=== PATIENT | male | born 1970 | race Caucasian/White ===

== ENCOUNTER 2025-01-11 13:40 | Emergency (ER) | payer OTHER ==
[~2025-01-11] VITALS: Ht 180.3 cm; Wt 85.4 kg
[2025-01-11] MEDS ORDERED: FLUOXETINE HCL20 MG PO (14:17)
[2025-01-11] MEDS ORDERED: HYDROXYZINE PAM25 MG PO (14:18)
[2025-01-11] MEDS ORDERED: OLANZAPINE5 MG PO (14:18)
[2025-01-11 14:28] LABS: BASOPHILS 0.5 % (0-2); EOSINOPHILS 0.2 % (0-6); HEMATOCRIT 39.5 % (35.0-50.0); HEMOGLOBIN 13.7 g/dL (12.0-18.0); LYMPHOCYTES 35.8 % (24-44); MCH 30.3 (27-36); MCHC 34.7 g/dl (30-36); MCV 87.3 fl (81-99); NEUTROPHILS 55.5 % (39-80); PLATELET COUNT 247 K/uL (140-440); RBC 4.53 M/ul (4.3-5.7); RDW 14.7 (10.5-15.0)
[2025-01-11] MEDS ORDERED: SODIUM CHLORIDE 0.9% 1,000 ML IV ONE (14:30)
[2025-01-11] MEDS ORDERED: ondansetron HCL 4 MG/2 ML VIAL IV ONE (14:30)
[2025-01-11 14:37] LABS: ALBUMIN 4.3 g/dL (3.4-5.0); ALBUMIN/GLOBULIN RATIO 1.16 (1.1-2.4); BILIRUBIN, TOTAL 0.8 mg/dL (0.2-1.0); BUN/CREATININE RATIO 15.09 (6.0-28.6); CALCIUM 9.4 mg/dL (8.5-10.1); CREATININE, SERUM 1.06 mg/dL (0.70-1.30)
[2025-01-11] MEDS ORDERED: MIRALAX17 GM PO (15:30)
[2025-01-11] MEDS ORDERED: KRISTALOSE20 GM PO (15:30)
[2025-01-11 15:43] VITALS: BP 113/73
== END 2025-01-11 15:40 | disposition other institution, planned readmission (95) ==
LOC: ED 13:40
PROVIDERS: Emergency Medicine
DX: K59.00 Constipation, unspecified (principal); Z79.899 Other long term (current) drug therapy
CPT/HCPCS: 36415; 74177; 80053; 80307; 85025; 96374; 99284-25; J2405; J7030; Q9967

== ENCOUNTER 2025-01-12 16:39 | Inpatient (IN) | payer OTHER ==
[~2025-01-12] VITALS: Ht 180.3 cm; Wt 105.7 kg
[~2025-01-12 16:39] MED LIST: FLUOXETINE HCL20 MG PO; HYDROXYZINE HCL25 MG PO; KRISTALOSE20 GM PO; MIRALAX17 GM PO; OLANZAPINE5 MG PO; SEVOFLURANE 250 ML BTL INH ONE
--- OUTSIDE RECORDS SUMMARY | 2025-01-12 16:46 | XMS ---
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 Deanna has no Care Guidelines for this patient. [facility] MO[facility]: Visits indicate total known visits. ED/C VISIT TRACKING (12 MO.) [facility] COMPLAINT: - ABDOMINAL PAIN 01/11/2025 13:42 CECY Palacios OR TYPE: Emergency COMPLAINT: - CONSTIPATION INPATIENT VISIT TRACKING (12 MO.) No inpatient visits to display in this time frame [email or web address]
[2025-01-12] MEDS ORDERED: KETOROLAC TROMETHAMINE 30 MG/ML VIAL IV ONE (21:00)
[2025-01-12] MEDS ORDERED: Methylnaltrexone Bromide 12 MG/0.6 ML VIAL SUB-Q ONE (21:00)
[2025-01-12] MEDS ORDERED: LIDOCAINE 2% VISCOUS 6 ML SYR TOP ONE ×2 (21:00→23:30)
[2025-01-12] MEDS ORDERED: MORPHINE SULFATE 4 MG/ML VIAL IV ONE (23:00)
[2025-01-13] VITALS (12 sets, daily range): BP systolic 102–135; BP diastolic 62–111
[2025-01-13] MEDS ORDERED: MINERAL OIL 133 ML BTL PR ONE ×2 (00:30→10:15)
[2025-01-13] MEDS ORDERED: LACTATED RINGER'S 1,000 ML IV SCH ×3 (01:15→11:30)
[2025-01-13] MEDS ORDERED: HYDROmorphone HCL 1 MG/ML SYR IV PRN ×2 (01:15→03:30)
[2025-01-13] MEDS ORDERED: KETOROLAC TROMETHAMINE 30 MG/ML VIAL IV PRN ×2 (03:30→10:30)
[2025-01-13] MEDS ORDERED: ondansetron HCL 4 MG/2 ML VIAL IV PRN ×2 (03:30→10:30)
[2025-01-13] MEDS ORDERED: metroNIDAZOLE/SODIUM CHLORIDE 500 MG/100 ML PIGGYBACK IV SCH ×2 (03:30→15:00)
[2025-01-13] MEDS ORDERED: PIPERACILLIN/TAZOBACTAM 3.375 GM in SODIUM CHLORIDE 0.9% 100 ML IV ONE (03:30)
--- NOTE | 2025-01-13 04:00 | NUR ---
PATIENT GIVEN PAIN MEDICATION BY AURE LUCERO. REPORT RECEIVED FROM AURE LUCERO. THIS RN IN ROOM TO ASSESS PATIENT AND COMPLETED ADMISSION FORMS. IV ABX STARTED AT THIS TIME.
--- NOTE | 2025-01-13 05:20 | NUR ---
PATIENT REPORTING 10/10 PAIN "IN MY ANUS". PATIENT MEDICATED AT THIS TIME WITH PRN PAIN MEDICATION. IV FLUSHED WITH 10ML OF NS, DRESSING INTACT. WARM BLANKET PROVIDED. PATIENT WITHOUT FURHTER NEEDS AT THIS TIME. CALL LIGHT AND PERSONAL BELONGINGS ARE WITHIN REACH.
[2025-01-13 05:33] LABS: BASOPHILS 0.6 % (0-2); EOSINOPHILS 0.2 % (0-6); HEMATOCRIT 36.6 % (35.0-50.0); HEMOGLOBIN 12.7 g/dL (12.0-18.0); MCH 30.4 (27-36); MCHC 34.8 g/dl (30-36); MCV 87.3 fl (81-99); MONOCYTES 8.5 % (0-12); NEUTROPHILS 58.7 % (39-80); PLATELET COUNT 238 K/uL (140-440); RBC 4.19 M/ul (4.3-5.7); RDW 14.9 (10.5-15.0)
[2025-01-13 05:51] LABS: ALBUMIN 3.7 g/dL (3.4-5.0); ALBUMIN/GLOBULIN RATIO 1.09 (1.1-2.4); BILIRUBIN, TOTAL 0.8 mg/dL (0.2-1.0); CALCIUM 8.7 mg/dL (8.5-10.1); PROTEIN, TOTAL 7.1 g/dL (6.4-8.2)
--- NOTE | 2025-01-13 07:04 | NUR ---
Pt report received from AURE Matthews and AURE Walker. Pt is awake in bed, supine, television on, Corrections Officers in room. Pt reports he is not in any pain at the moment and denies any needs at this time. When asked, he states he has been voiding (in report they advised he had not voided since he arrived to the floor). C/O requested a cup of coffee which was provided. White board updated. Side rails up x4, call light in reach.
--- NOTE | 2025-01-13 08:45 | NUR ---
AURE Bryant from OR here to transfer pt to day surgery. Hung LR on straight tubing with extension, administered IV famotidine per emar after assessment of IV site. Annette assisted pt and C/Os to remove pt's clothing and don a clean gown, and explained procedure to pt who then signed consent. Pt transferred via hospital bed to OR by AURE Bryant, C/Os accompanied them. Assessment completed prior to AURE Bryant's arrival.
[2025-01-13] MEDS ORDERED: FAMOTIDINE 20 MG/ 2 ML VIAL IV SCH (09:00)
[2025-01-13] MEDS ORDERED: propofoL 200 MG/20 ML VIAL ONE (09:09)
[2025-01-13] MEDS ORDERED: fentaNYL citrate 100 MCG/2 ML VIAL ONE (09:09)
[2025-01-13] MEDS ORDERED: LIDOCAINE HCL 2% 5 ML SDV ONE (09:09)
[2025-01-13] MEDS ORDERED: ROCURONIUM BROMIDE 50 MG/5 ML SYR ONE (09:09)
[2025-01-13] MEDS ORDERED: DEXAMETHASONE SOD PHOS 4 MG/ML VIAL ONE (09:10)
[2025-01-13] MEDS ORDERED: ondansetron HCL 4 MG/2 ML VIAL ONE (09:10)
[2025-01-13] MEDS ORDERED: ACETAMINOPHEN 1,000 MG/100 ML VIAL ONE (09:15)
[2025-01-13] MEDS ORDERED: POLYETHYLENE GLYCOL 3350 BOTTLE XX ONE (09:15)
--- NOTE | 2025-01-13 10:03 | NUR ---
[place] [facility] [place] FOR INTESTINAL POSITIVE CT, SURGICAL INTERVENTION NEEDED, IV FLUIDS, IV ANALGESICS WILL NOTIFY PHYSICIAN MEETS INPT CRITERIA CHP-ODOC OBS 01/13/25 @ 0328 ORDER MATCHES REG NO AUTH REQUIRED FOR ODOC, CLINICALS SENT DC TO [facility] WHEN MEDICALLY STABLE 01/14/2025
[2025-01-13] MEDS ORDERED: fentaNYL citrate 50 MCG/ML SDV IV PRN (10:30)
[2025-01-13] MEDS ORDERED: IBLOOD GLUCOSE TEST STRIP 1 EA TEST VI PRN (10:30)
[2025-01-13] MEDS ORDERED: NALOXONE HCL 0.4 MG SYR IV PRN (10:30)
[2025-01-13] MEDS ORDERED: MINERAL OIL 133 ML BTL ONE (10:38)
[2025-01-13] MEDS ORDERED: SUGAMMADEX SODIUM 200 MG/2 ML ML ONE (10:42)
--- NOTE | 2025-01-13 10:55 | NUR ---
01/13/25 1055 Svetlana Flannery 1050-PATIENT ARRIVED TO PACU ON 6L MASK RR EVEN.PATIENT REACTIVE TO VERBAL STIMULI VERY DROWSY OPENS EYES. ORIENTED TO PACU. ABDOMEN SOFT IVF INFUSING. HOB ELEVATED SR HR 60'S. 1053-PATIENT AROUSING DROWSY PLACED ON RA 99% RR EVEN.
--- NOTE | 2025-01-13 11:25 | NUR ---
PT TO ROOM FROM PACU, REPORT RECEIVED FROM EMMANUEL Alfred RN. PT ALERT, DENIES PAIN AT THIS TIME. VS TAKEN. 2 GUARDS IN ROOM. NO REQUESTS AT THIS TIME.
--- NOTE | 2025-01-13 12:24 | NUR ---
MED REC COMPLETE
--- NOTE | 2025-01-13 13:24 | NUR ---
PATIENT LIVES AT [facility]. PATIENT DOES NOT REQUIRE OXYGEN OR A CPAP. NO FUTHER CM NEEDS AT THIS TIME.
[2025-01-13] MEDS ORDERED: PIPERACILLIN/TAZOBACTAM 3.375 GM in SODIUM CHLORIDE 0.9% 100 ML IV SCH (14:00)
--- NOTE | 2025-01-13 15:50 | NUR ---
Dr. Roberts in with pt to answer questions. Pt up with COs to ambulate hallway at Dr. Roberts's request. Pt reporting pain in area of anus. Dr. Roberts explained why he is painful there after surgery. Pt up to void large quantity of dark colored urine in toilet (unmeasured) prior to ambulating. Pt back from ambulation and is now sitting on the toilet attempting to pass stool. COs in room. Bed tidied.
--- NOTE | 2025-01-13 16:18 | NUR ---
Pt has been ambulating hallways for about 30 minutes. Has had to sit on the toilet 2 or 3 times throughout and states that he is passing gas and "oily yellow stuff". Encouraged pt to continue ambulating as often as possible. Pt states he isn't having any pain until he sits on the toilet and pushes, or until he sits down, causing him to have to lay on his side.
[2025-01-13] MEDS ORDERED: POLYETHYLENE GLYCOL 3350 1 PACKET PO ONE (19:00)
--- NOTE | 2025-01-13 19:03 | NUR ---
PC to Dr. Roberts to update him on this pt's bowel progress. Advised Dr. Roberts that the pt has been ambulating often since he saw him earlier this afternoon, and has had multiple liquid/oily stools but no substance to them. Dr. Roberts gave a verbal order for 2 packets of miralax to mix in 480ml-720ml of water/apple juice and requested we ask dietary if they have Extra [place] Maria Stein Oil to add 2 tbsp to this miralax mixture, and to go ahead and give him ice cream if we have any on the floor.
--- NOTE | 2025-01-13 19:10 | NUR ---
REPORT RECEIVED FROM AURE CAMACHO. PATIENT RESTING IN BED WATCHING TV WITH GAURDS X2 AT BEDSIDE. PATIENT WITHOUT ANY NEEDS AT THIS TIME. CALL LIGHT AND PERSONAL BELONGINGS ARE WITHIN REACH.
--- NOTE | 2025-01-13 20:30 | NUR ---
PATIENT UP IN SHOWER AND REPORTING SEVERE PAIN IN HIS ABDOMEN. PATIENT REPORT HAVING BOWEL MOVEMENTS THAT "EXPLODED IN THE SHOWER" PATIENT REPORTS IT IS "JUST SOME OILY STUFF, NO ACTUAL POOP". DR NOWAK CALLED AT THIS TIME DUE TO PATIENT PAIN NOT TOLERABLE AND NOT GETTING ANY RELIEF. DR NOWAK STATES "THERE IS NOTHING MORE WE CAN DO RIGHT NOW." THIS RN ASKED MD "IF THE PAIN DOESN'T LET UP,HOW LONG DO YOU WANT ME TO WAIT UNTIL I CALL YOU BACK?" MD STATES "IN ONE TO TWO HOURS YOU CAN CALL BACK IF IT CONTINUES TO GET WORSE WITHOUT RELIEF, BUT AGAIN THERE REALLY ISN'T ANYTHING MORE WE CAN DO. THE NEXT STEP WOULD BE SURGERY AND WE ARE TRYING TO AVOID THAT." WITH NO FURTHER ORDERS AT THIS TIME. CALL ENDED.
--- NOTE | 2025-01-13 21:15 | NUR ---
IN ROOM FOR ABX ADMINISTRATION. PATIENT REPORTS STILL HAVING SEVERE PAIN, BUT IS "ABLE TO PUSH THROUGH IT BECAUSE IT COMES AND GOES." IV FLUSHED WITH 10ML OF NS, DRESSING INTACT. ABX INFUSING. PATIENT WITHOUT FURTHER NEEDS AT THIS TIME. CALL LIGHT AND PERSONAL BELONGINGS ARE WITHIN REACH.
--- NOTE | 2025-01-13 22:30 | NUR ---
IN ROOM FOR ABX ADMINISTRATION. PATIENT REPORTS STILL HAVING SEVERE PAIN, BUT TOLERATES IT. PATIENT HAD VOMITING EPISODE. PATIENT STATES HE NO LONGER FEELS NAUSEATED. PATIENT UP TO THE BATHROOM AGAIN WHILE THIS RN WAS IN THE ROOM. NO OTHER VOMITING EPISODES. PATIENT REPORTS "I FEEL IT THERE BUT IT'S TOO BIG AND TOO PAINFUL, I CAN'T PUSH IT OUT." PATIENT DENIES WANTING ANYTHING FURTHER AND WANTS TO "JUST RIDE IT OUT". PATIENT WITHOUT FURTHER NEEDS AT THIS TIME. NAOMI X2 AT BEDSIDE. CALL LIGHT AND PERSONAL BELONGINGS ARE WITHIN REACH.
--- NOTE | 2025-01-13 23:30 | NUR ---
PATIENT RESTING IN BED WATCHING TV WITH NAOMI X2 AT BEDSIDE. PATIENT REPORTS "IT'S CALMING DOWN, I DON'T HAVE TO GET UP AND GO OFTEN, BUT WHEN THE PAIN COMES, IT'S STILL PRETTY SEVERE". PATIENT DENIES ANY NAUSEA OR ANY MORE VOMITING EPISODES. PATIENT ALSO DENIES ANY STOOL, "JUST YELLOW OILY STUFF COMING OUT." PATIENT WITHOUT FURTHER NEEDS AT THIS TIME. CALL LIGHT AND PERSONAL BELONGINGS ARE WITHIN REACH.
[2025-01-14] VITALS (8 sets, daily range): BP systolic 97–117; BP diastolic 45–71
--- NOTE | 2025-01-14 01:14 | NUR ---
PATIENT RESTING IN BED WATCHING TV WITH GAURDS X2 AT BEDSIDE. PATIENT REPORTS "I'M MISERABLE" WHEN ASKED BY THIS RN HOW HE IS FEELING. PATIENT DENIES ANY NEEDS AT THIS TIME. CALL LIGHT AND PERSONAL BELONGINGS ARE WITHIN REACH.
--- NOTE | 2025-01-14 02:39 | NUR ---
PATIENT RESTING IN BED WATCHING TV WITH Heap X2 AT BEDSIDE. PATIENT FOCUS ASSESSMENT COMPLETED. BOWEL TONES ARE ACTIVE IN ALL 4 QUADRANTS, ABDOMEN IS TENDER WITH PALPATION. PATIENT DENIES ANY BOWEL MOVEMENTS. VITAL SIGNS ARE STABLE. FRESH COFFEE PROVIDED. PATIENT WITHOUT FURTHER NEEDS AT THIS TIME. CALL LIGHT AND PERSONAL BELONGINGS ARE WITHIN REACH.
--- NOTE | 2025-01-14 04:03 | NUR ---
PATIENT CALLED FOR NEW GOWN. THIS RN IN ROOM TO PROVIDE FRESH GOWN. PATIENT STATES HE IS "EXTREMELY MISERABLE", BUT WAS ABLE TO PASS A SMALL AMOUNT OF STOOL. ICE PACKS FROM [facility] PROVIDED TO PATIENT FOR COMFORT. PATIENT STATES HE "MIGHT TRY THEM NEXT TIME I HAVE TO GET UP TO THE BATHROOM." WARM BLANKET PROVIDED AND SCD'S TUNRED ON. PATIENT WITHOUT FURTHER NEEDS AT THIS TIME. CALL LIGHT AND PERSONAL BELONGINGS ARE WITHIN REACH.
--- NOTE | 2025-01-14 05:55 | NUR ---
IN PATIENT ROOM FOR VITAL SIGNS AND ABX ADMINISTRATION. PATIENT RESTING IN BED ON HIS LEFT SIDE. PATIENT WITHOUT FURTHER NEEDS AT THIS TIME. CALL LIGHT AND PERSONAL BELONGINGS ARE WITHIN REACH. PATIENT DENIES ANY MORE BOWEL MOVEMENTS.
--- NOTE | 2025-01-14 07:18 | NUR ---
Pt report received from RNs Cassie and Denise.
--- NOTE | 2025-01-14 08:29 | OR ---
[facility] 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 PROCEDURES: 1. Examination under anesthesia. 2. The impaction of fecaloma. 3. Colonoscopy with instillation of bowel prep. ANESTHESIA: General endotracheal anesthesia. DESCRIPTION OF PROCEDURE: After obtaining informed consent the patient was taken to the operating room and he was placed in a supine lithotomy position. The scrotum was retracted cephalad and sutured to the thigh. After achieving adequate paralysis, I went ahead and inspected the anus which he had a couple of internal hemorrhoids and I dilated the anus as much as I could. Upon entering the rectum it was very apparent that he had extremely hard stool that was impacted circumferentially also on the rectum. It was actually extremely difficult to break it down due to how hard it was. After taking sometime to chipping, chipping and chipping on the fecaloma I was able to break it down and extracted it. I tried to push some of the stool down from left lower quadrant from the sigmoid colon and down to the rectum and continued to extract as much as I could and again all throughout was very hard and difficult to break down. Once I cleared the rectum and the rectosigmoid area then I went ahead and inserted colonoscope with adequate lubrication and I navigated a scope around the stool very, very gently to achieve as far as I could that it was safe to do. I reached all the way to the hepatic flexure and at that point I saw a more superficial ulceration and I decided not to go any further. At this point, I went ahead and started irrigating the colon through the scope with polyethylene glycol and mineral oil. We infused about a liter of PEG, 300 mL of mineral oil. I pulled the scope. I continued to visualize circumferentially as well as I could and then reached the rectum again. Because of this irrigation, I was able to bring some of the stool down into the rectum which I was able to extract again manually. I reinserted the scope again to visualize the rectum. I did not see any ulcerations or any tears in the rectum or perianal area and I did not see any colitis. The patient tolerated very well the procedure and was then sent to the recovery room in good and stable condition. Electronically Signed By: GRAY ROBERTS MD 01/14/25 0829 PATIENT NAME: RHONDA IBANEZ OPERATIVE REPORT DATE OF : 74 REPORT #: [id number] PHYSICIAN: GRAY ROBERTS MD PCP: [facility] CORRECTIONAL REPORT IS CONFIDENTIAL AND NOT TO BE RELEASED WITHOUT AUTHORIZATION [facility] [address] [place] [id number] Signed MD MADISON Gatica/TONY /[id number] Copies: ~ Electronically Signed By: GRAY ROBERTS MD 01/14/25 0829 PATIENT NAME: RHONDA IBANEZ OPERATIVE REPORT DATE OF : 74 REPORT #: [id number] PHYSICIAN: GRAY ROBERTS MD PCP: [facility] REPORT IS CONFIDENTIAL AND NOT TO BE RELEASED WITHOUT AUTHORIZATION
--- NOTE | 2025-01-14 08:33 | NUR ---
DOCTOR IN ROOM WITH PATIENT. NO CARES WERE REQUESTED.
--- NOTE | 2025-01-14 08:55 | NUR ---
UR CLINICAL REVIEW: [facility] [place] MEETS INPT FOR INTESTINAL POSITIVE CT, SURGICAL INTERVENTION NEEDED, IV FLUIDS, IV ANALGESICS POTENTIAL NEED FOR FURTHER SURGICAL INTERVENTION CHP-ODOC FROM OBS TO INPT 01/14/25 @ 0853 ORDER MATCHES REG NO AUTH REQUIRED FOR ODOC, CLINICALS SENT DC TO [facility] WHEN MEDICALLY STABLE 01/17/2025
--- NOTE | 2025-01-14 10:11 | NUR ---
In with pt for medication administration per IV, per emar. Pt is A&O x4, COs in room, pt is restrained per [facility] protocol. Pt denies pain at this time. Requests ice cream, stating this "is the only thing that helps me go". Pt was provided with a chocolate and a vanilla cup of ice cream. Side rails up, call light in reach, questions answered.
--- NOTE | 2025-01-14 10:35 | NUR ---
optics technical officer here to transfer pt via wheelchair for CT scan, COs escorting, pt in restraints. IV S/L for imaging.
--- NOTE | 2025-01-14 11:01 | NUR ---
Pt back from imaging. Pt states when he got back, he had a medium sized "boulder-like" hard BM. He states it was extremely painful to pass and felt like everything was "ripping open". Pt states, currently, he is not painful. IVF/ABX reconnected after IV assessment (patent, no blood return, but no leaking, swelling, redness). COs in with pt, restraints on pt.
--- NOTE | 2025-01-14 15:00 | NUR ---
In pt's room with Dr. Roberts. Verbal orders received to administer 2pkts miralax mixed in the pt's liquid of choice (excluding milk) (480-760ml), and to add 2 tbsp extra virgin olive oil to that mix and have the pt sip it over a period of time. Verbal order also received to administer uroject to the pt's anus to provide some pain relief when he is passing the large dried stool. Pharmacy was notified of the verbal order, order entered into pt's chart.
[2025-01-14] MEDS ORDERED: LIDOCAINE 2% VISCOUS 6 ML SYR TOP SCH (15:30)
[2025-01-14] MEDS ORDERED: POLYETHYLENE GLYCOL 3350 1 PACKET PO ONE (15:30)
--- NOTE | 2025-01-14 16:46 | NUR ---
Pt is ambulating the hallway at this time and has ambulated several times throughout this shift. He states, after swallowing 2Tbsp of Extra [place] oil as ordered by Dr. Roberts, that he felt his bowels move, and "drop into the rectum" but he's "too scared to push because I know it will hurt". He is working on drinking the miralax in prune juice but states he doesn't want to "puke".
--- NOTE | 2025-01-14 19:15 | NUR ---
REPORT RECEIVED FROM JANICE LOONEY. pt RESTING IN THE BED. BOARD UPDATED. pt DENIES ANY OTHER NEEDS AT THIS TIME. CALL LIGHT WITHIN REACH.
--- NOTE | 2025-01-14 20:41 | NUR ---
PHYSICAL SECURITY MANAGER OBTAINEC VITALS. NO NEW I&O AT THIS TIME. PT STATES NO NEEDS AND CALL LIGHT WITHIN REACH. GUARDS IN ROOM.
--- NOTE | 2025-01-14 20:50 | NUR ---
ASSESSMENT AND VITAL SIGNS DONE. pt RESTING IN THE BED BOWEL TONES ACTIVE. pt ABD IS SOFT AND NON-DISTENDED. IV ASSESSED, WNL. pt DENIES ANY OTHER NEEDS AT THIS TIME. IVF INFUSING PER ORDER. SCHEDULED MEDS ADMINISTERED. CALL LIGHT WITHIN REACH.
--- NOTE | 2025-01-14 22:30 | NUR ---
pt BACK TO BED AFTER TAKING A SHOWER. pt STATES HE HAD A BM IN THE SHOWER. IT WAS LOOSER WITH CHUNCKS IN IT. IV ABX FINISHED. AND NEW IV ABX INFUSING PER ORDER. pt DENIES ANY OTHER NEEDS AT THIS TIME. CALL LIGHT WITHIN REACH. SNACK PROVIDED.
[2025-01-15] VITALS (10 sets, daily range): BP systolic 105–120; BP diastolic 58–69
--- NOTE | 2025-01-15 00:36 | NUR ---
pt CALLED FOR IV ALARMING. NEW BAG OF IVF INFUSING PER ORDER. pt DENIES ANY OTHER NEEDS AT THIS TIME. CALL LIGHT WITHIN REACH.
--- NOTE | 2025-01-15 01:45 | NUR ---
pt RESTING IN THE BED WITH EYES CLOSED. RR EVEM AND UNLABORED. CALL LIGHT WITHIN REACH.
--- NOTE | 2025-01-15 07:35 | NUR ---
MORNING REPORT RECIEVED FROM AURE SPRING. PT LAYING IN BED ON LEFT SIDE WITH EYES CLOSED CHEST RISE EQUAL BILAT WITH TO GAURDS IN ROOOM WITH PT. PT DID HAVE LOOSE BM DURING THE NIGHT AND CONTINUES TO SHOW IMPROVMENT. PT HAS CALL LIGHT IN REACH.
--- NOTE | 2025-01-15 10:34 | NUR ---
PT LAYING IN BED, PT HAS NO CURRENT COCNERNS AT THIS TIME. PT SPOKE WITH MD AND HAS AGREED TO AMBULATE THE HALLS TO HELP INCREASE GI ACTIVITY. PT HAS CALL LIGHT IN REACH AND NO CURRENT CONCERNS AT THIS TIME.
--- NOTE | 2025-01-15 11:37 | NUR ---
PT HAD A LARGE BM, PT REPORTS FEELING MUCH BETTER NOW AND DENIES ANY PAIN AT THIS TIME, PT ABD IS SOFT AND NONE TENDER. PT HAS NO CURRENT CONCERNS AT THIS TIME. PT CALL LIGHT IN REACH.
--- NOTE | 2025-01-15 12:21 | NUR ---
PT LAYING IN BED ON THE LEFT SIDE. PT HAS NO PAIN AT THIS TIME AND FEELS MUCH BETTER AFTER HAVING THE BM EARLIER. PT HAS NO CURRENT CONCERNS AT THIS TIME CALL LIGHT IN REACH WITH 2 GAURDS IN ROOM.
--- NOTE | 2025-01-15 14:23 | NUR ---
PT CONTINUES TO HAVE LARGE FORMED BM'S. PT REPORTS DECREASED PAIN AND DENIES NEED FOR PARM INTERVENTIONS. PT HAS NO CURRENT CONCERNS AT THIS TIME CALL LIGHT IN REACH.
[2025-01-15] MEDS ORDERED: DOCUSATE SODIUM 250 MG CAP PO SCH (14:43)
--- NOTE | 2025-01-15 15:41 | NUR ---
PT HAS HAD TWO LARGE BMS TODAY, PT HAS STATED " THAT HE FEELS ALOT BETTER AND HIS ABD IS NOT TENDER AT THIS TIME". PT HAS NO CURRENT CONCERNS AT THIS TIME AND HAS CALL LIGHT IN REACH WITH TWO NAOMI IN ROOM.
--- NOTE | 2025-01-15 15:53 | NUR ---
PT HAS CONTINUED TO HAVE FORMED BM. PT HAS NO COMPLAINTS AT THIS TIME, AND HAS BEEN ADVANCED TO A REGULAR DIET.
--- NOTE | 2025-01-15 16:19 | NUR ---
PT CURRENTLY IN BED, PT REPORTS NO PAIN AT THIS TIME AND DENIES ANY NEEDS. PT GAURDS JUST CHANGED AND PT HAS NO CONCERNS AND CALL LIGHT IN REACH AT THIS TIME.
--- NOTE | 2025-01-15 17:18 | NUR ---
PT SITTING UP IN BED EATING DINNER, PT HAS BEEN PROGRESSED TO A REGULAR DIET PER MD ORDERS. PT SEEMS TO BE TOLERATING DIET WELL AND WILL CONTINUE TO MONITOR. PT HAS TWO [facility] GUARDS IN ROOM, PT HAS CALL LIGHT IN REACH AND NO CURRENT CONCERNS AT THIS TIME.
--- NOTE | 2025-01-15 17:58 | NUR ---
PT SITTING UP IN BED WATCHING TV WITH TWO GAURDS PRESENT IN ROOM WITH PT. PT HAS NO COMPLAINTS AT THIS TIME. DENIES PAIN, NAUSEA, OR FEELING CONSTIPATION AT THIS TIME. PT HAS CALL LIGHT IN REACH.
--- NOTE | 2025-01-15 21:34 | NUR ---
Awake, watching tv. on room air. pleasant and cooperative. Lungs clear dim at bases, no c/o sob. reg rhythm, no c/o CP. and HEA, LBM today . soft, non tender. IVF and abx infusing LAC. wearing 4point [facility] restraints. 2 [facility] officers in room.
[2025-01-16] VITALS (9 sets, daily range): BP systolic 104–121; BP diastolic 63–76
--- NOTE | 2025-01-16 00:38 | NUR ---
Awake, no c/o pain. IVF infusing w/o problems. wearing 4 point restraints as per [facility] protocol 2 officers in room
--- NOTE | 2025-01-16 02:14 | NUR ---
Resting, eyes closed, repositions self in bed. IVF infusing w/o problems. wearing 4point restraints as per [facility] protocol, 2 officers in room
--- NOTE | 2025-01-16 04:12 | NUR ---
Resting, eyes closed, no s/sx distress, IVF infusing w/o problems [address] 2 [facility] officers in room
--- NOTE | 2025-01-16 06:00 | NUR ---
resting, awakens easily, no s/sx distress. IVF infusing w/o problem. Independent in room. has had a total of 2 bm's this shift.
--- NOTE | 2025-01-16 06:06 | NUR ---
Daily bed weight 105.7KG
--- NOTE | 2025-01-16 07:03 | NUR ---
Pt report received from AURE Addison. Pt is resting on his left side in bed, eyes closed, breathing is regular even, and non-labored. Side rails up x4, pt is in 4pt restraints, correctional officers in room.
--- NOTE | 2025-01-16 08:31 | NUR ---
PATIENT IN BED AT THIS TIME. [employer] AIRCRAFT TECHNICIAN CHARTED HOURLY ROUNDS. CALL LIGHT WITHIN REACH, NO FURTHER NEEDS.
--- NOTE | 2025-01-16 10:04 | NUR ---
PATIENT IN BED AT THIS TIME. DOOR CUTTER CHARTE VITALS AND I&O'S. CALL LIGHT WITHIN REACH, NO FURTHER NEEDS AT THIS TIME.
--- NOTE | 2025-01-16 16:21 | NUR ---
IN WITH PT FOR HOURLY ROUNDS. PT IS A&O, RESTING ON HIS LEFT SIDE IN BED. C/OS DENY NEEDS. PT REQUESTS A CUP OF COFFEE WITH SUGAR, AND SANGEETHA CRACKERS. PT STATES HE HAD ANOTHER 2 BMS, BOTH SOFT, STATES IT STILL HURTS TO GO BUT HE'S USED TO IT NOW (SENSATION OF BURNING/TEARING IN THE ANUS WHILE PASSING STOOL). SIDE RAILS UP X4, CALL LIGHT IN REACH. ABX INFUSING THROUGH PATENT IV.
--- NOTE | 2025-01-16 17:45 | NUR ---
Pt has been ambulating the hallways throughout the shift and has had several small BMs, reporting two of them were hard still and the most recent two have been soft, but still painful upon exiting the rectum/anus. He reports slight tenderness in the lower abdomen, but his abdomen is now soft and he is able to tolerate palpation. IV site has remained patent and without redness, swelling, or leaking. Dressing was changed the last NOC shift. Pt education has been reinforced throughout the shift r/t constipation and how to prevent it.
--- NOTE | 2025-01-16 20:26 | NUR ---
TOOK SHOWER, UP IN BED. ROOM AIR, LUNGS CLEAR BILAT, ABD SOFT, CHARMAINE, HAD ANOTHER HARD BM AT THIS TIME. VOIDED QS IN BRP. SL PATENT lac, ivf AND ABX INFUSING W/O PROBLEMS. NO C/O PAIN. WEARING 4 POINT RESTRAINTS PER [facility] PROTOCOL
--- NOTE | 2025-01-16 23:40 | NUR ---
WATCHING TV, NO C/O PAIN. REPOSITIONS SELF IN BED. IVF INFUSING W/O PROBLEMS. RESATRAINSTS AND 2 OFFICERS PER [facility] PROTOCOL.
--- NOTE | 2025-01-17 01:16 | NUR ---
RESTING, EYES CLOSED, SLEEPINGON HIS STOMACH. IVF INFUSING. NO S/SX DISTRESS
[2025-01-17 05:58] VITALS: BP 100/62
--- NOTE | 2025-01-17 06:12 | NUR ---
awakens easily, no s/sx distress. IVF/ABX infusing w/o problems. has had total of 3 hard to soft bm's this shift, voiding qs. using 4point soft restraints, 2 [facility] officers in room. no c/o pain, cooperative with vitals
--- NOTE | 2025-01-17 06:59 | NUR ---
Pt report received from AURE Addison. Pt is resting in bed, A&O. Correctional officers in room. IVP alarming occlusion on patient side. IV site assessed. Patent, no redness, no swelling, no leaking noted, pt has no c/o burning or stinging at site. IV pump restarted. Call light in reach. Denies needs at this time.
--- NOTE | 2025-01-17 08:05 | NUR ---
CALLED [facility] TO LET THEM KNOW THE PATIENT WILL BE DISCHARGING TODAY.
[2025-01-17] MEDS ORDERED: COL-RITE250 MG PO (08:28)
== END 2025-01-17 09:30 | disposition other institution, planned readmission (95) | DRG 389 ==
LOC: ED 16:39 → MS 16:41
PROVIDERS: Internal Medicine; ADMIT Transplant Surgery; ATTEND Transplant Surgery
PROC: 3E1H88Z Irrigation of Lower GI using Irrigating Substance, Via Natural or Artificial Opening Endoscopic (ICD-10-PCS; 2025-01-13)
PROC: 0DCP7ZZ Extirpation of Matter from Rectum, Via Natural or Artificial Opening (ICD-10-PCS; principal; 2025-01-13 09:00)
PROC: 0DJD8ZZ Inspection of Lower Intestinal Tract, Via Natural or Artificial Opening Endoscopic (ICD-10-PCS; 2025-01-13 09:00)
DX: K56.41 Fecal impaction (principal); K63.3 Ulcer of intestine; K62.89 Other specified diseases of anus and rectum; K52.89 Other specified noninfective gastroenteritis and colitis; F32.9 Major depressive disorder, single episode, unspecified; F41.9 Anxiety disorder, unspecified; K64.8 Other hemorrhoids
CPT/HCPCS: 00902; 36415; 74177; 80053; 85025; 94762; 94799; 96365; 96366; 96367; 96375; 96376; 99285-25; G0378; J0131; J1100; J1171; J1885; J2003; J2212; J2270; J2405; J2543; J2704; J3010; J3490; J7121; Q9967